=== PATIENT | male | born 1985 | race Caucasian/White ===

== ENCOUNTER 2018-09-24 07:41 | Emergency (ER) | payer SELFPAY ==
--- NOTE | 2018-09-24 07:57 | C.PDOC ---
Time Seen by Provider: 09/24/18 07:46 Past Medical History - Social History Hx Alcohol Use: No Hx Substance Use: No - Immunization History Hx Tetanus Toxoid Vaccination: No Hx Influenza Vaccination: No
--- NOTE | 2018-09-24 07:58 | C.PDOC ---
History Of Present Illness 32 years old male brought in by EMS for evaluation of palpitations. As per, EMS patient was found in [facility] sleeping in the path station. As per patient, he was going to visit a friend in [place] then started feeling the symptoms. Patient also states that he was recently discharged from [facility]. Patient currently refuses intervention and states that he mainly wants to shower and eat. Denies SI, HI, hallucinations, acute intoxication, or any other complaints. Time Seen by Provider: 09/24/18 07:46 History Per: Patient History/Exam Limitations: no limitations Onset/Duration Of Symptoms: Hrs Current Symptoms Are (Timing): Still Present Suicide/Self Injury Attempted (Context): None Modifying Factor(s): None Associated Symptoms: denies: Suicidal Thoughts, Suicidal Plan Involuntary Hold By: None Recent travel outside of the [place]: No Past Medical History Reviewed: Historical Data, Nursing Documentation, Vital Signs - Medical History PMH: No Chronic Diseases Surgical History: No Surg Hx Family History: States: No Known Family Hx - Social History Hx Alcohol Use: No Hx Substance Use: No - Immunization History Hx Tetanus Toxoid Vaccination: No Hx Influenza Vaccination: No Review Of Systems Constitutional: Negative for: Fever, Chills Cardiovascular: Negative for: Chest Pain Skin: Negative for: Rash Neurological: Negative for: Weakness, Numbness Psych: Negative for: Suicidal ideation Physical Exam - Physical Exam Appears: Non-toxic, No Acute Distress Skin: Normal Color, Warm, Dry, No Rash Head: Atraumatic, Normacephalic Eye(s): bilateral: Normal Inspection, PERRL, EOMI Oral Mucosa: Moist Neck: Normal ROM, Supple Chest: Symmetrical, No Tenderness Cardiovascular: Rhythm Regular, No Murmur Respiratory: Normal Breath Sounds, No Rales, No Rhonchi, No Wheezing, Other (NARD) Gastrointestinal/Abdominal: Normal Exam, Soft, No Tenderness, No Distention Extremity: Normal ROM Extremity: Bilateral: Atraumatic, Normal Color And Temperature, Normal ROM Pulses: Left Radial: Normal, Right Radial: Normal Neurological/Psych: Oriented x3, Normal Speech, Other (Cooperative, interacting, No acute intoxication or withdrawal, No Psychosis. ) Gait: Steady Medical Decision Making Medical Decision Making: Patient is stable for discharge and will be discharged. Disposition Counseled Patient/Family Regarding: Diagnosis, Need For Followup - Disposition Disposition: HOME/ ROUTINE Disposition Time: 07:56 Condition: GOOD Instructions: Palpitations (DC) - Clinical Impression Clinical Impression: Food hunger, Palpitations - Scribe Statement The provider has reviewed the documentation as recorded by the Theresaibbrady Aguilar All medical record entries made by the Theresaibbrady were at my direction and personally dictated by me. I have reviewed the chart and agree that the record accurately reflects my personal performance of the history, physical exam, medical decision making, and the department course for this patient. I have also personally directed, reviewed, and agree with the discharge instructions and disposition.
[2018-09-24 08:12] VITALS: BP 154/92; PULSE 92; RESP 18; TEMP 98.7; O2SAT 98
== END 2018-09-24 08:20 | disposition home or self-care (01) ==
LOC: C.ER 07:41
DX: R00.2 Palpitations (principal); T73.0XXA Starvation, initial encounter